=== PATIENT | female | born 1960 | race American Indian/Alaskan Native ===

== ENCOUNTER 2020-05-16 15:20 | Outpatient (REF) | payer OTHER, SELFPAY ==
--- NOTE | 2020-05-16 15:26 | MM_ITS ---
EXAMINATION: MM SCREENING DIGITAL BREAST TOMOSYNTHESIS, BILATERAL CLINICAL INFORMATION: Screening. Asymptomatic. No family history breast cancer. Age 59. The lifetime risk of breast cancer based on the Tyrer-Cuzick Model is 9%. COMPARISON: None. TECHNIQUE: Digital breast tomosynthesis is performed in both the craniocaudal and mediolateral oblique views along with computer-aided detection (CAD). Synthesized 2D images are generated from the tomosynthesis. FINDINGS: The breasts are almost entirely fatty (ACR BI-RADS breast composition Category a). Background stromal markings appear normal. There is no mass or architectural abnormality. No abnormal calcifications. The axilla and skin contours are unremarkable. MM/MM tomosynthesis screening BI IMPRESSION: No mammographic evidence of malignancy. ASSESSMENT: BI-RADS 1: Negative RECOMMENDATION: Routine annual mammography screening. This patient's information was entered into a reminder system with a target due date for their next mammogram.
== END 2020-05-16 15:21 | disposition home or self-care (01) ==
LOC: HO.MAMMO 15:20
PROVIDERS: PCP Family Medicine; Visit Provider Family Medicine
DX: Z12.31 Encounter for screening mammogram for malignant neoplasm of breast (principal)
CPT/HCPCS: 77063; 77067

== ENCOUNTER 2020-05-30 08:20 | Outpatient (REF) | payer OTHER, SELFPAY ==
[2020-05-30 09:32] LABS: COVID-19 Test Negative (Negative)
== END 2020-05-30 08:21 | disposition home or self-care (01) ==
LOC: HO.EMPCOV 08:20
PROVIDERS: Visit Provider Internal Medicine
DX: Z20.828 Contact with and (suspected) exposure to other viral communicable diseases (principal)
CPT/HCPCS: 87635; C9803

== ENCOUNTER 2020-07-10 07:17 | Outpatient (REF) | payer OTHER, SELFPAY ==
[2020-07-10 07:35] LABS: COVID-19 Test Negative (Negative)
== END 2020-07-10 07:18 | disposition home or self-care (01) ==
LOC: HO.EMPCOV 07:17
PROVIDERS: Visit Provider Internal Medicine
DX: Z20.828 Contact with and (suspected) exposure to other viral communicable diseases (principal)
CPT/HCPCS: 36415; 87635; C9803

== ENCOUNTER 2020-07-13 07:24 | Day surgery (SDC) | payer OTHER, SELFPAY ==
--- NOTE | 2020-07-11 13:51 | HO.ANESPROP2 ---
HPI - Anesthesia Eval Consult details Narrative: 59yo F for Colonoscopy PMFSH Past Medical History Medical History Anxiety Asthma Diabetes mellitus Elevated cholesterol Surgical History Surgical History H/O wisdom tooth extraction Hx of colonoscopy Hx of tonsillectomy Social History Social History Smoking Status: Never smoker Advance Directives: Yes Advance Directives Information Provided: Yes Advance Directives on File: No Advance Directives Date on File: 07/13/20 Recently lost weight without trying: No Meds Allergies Allergy/AdvReac Type Severity Reaction Status Date / Time theophylline [THEOPHYLLINE] Allergy Mild HIVES Verified 07/13/20 08:06 codeine [CODEINE] AdvReac Mild HIVES Verified 07/13/20 08:06 Chocolate AdvReac Shortness Verified 07/13/20 07:50 of Breath nut - unspecified AdvReac Shortness Verified 07/13/20 07:49 of Breath Home Medications Medication Instructions Recorded Confirmed Type alprazolam 1 tab PO DAILY PRN 07/05/20 07/13/20 History cyclobenzaprine 1 tab PO TID 07/05/20 07/05/20 History rosuvastatin 1 tab PO DAILY 07/05/20 07/05/20 History Exam Exam Date and Time: July 11, 2020 1351 Pertinent Lab Results Pertinent Lab Results: Laboratory Tests 12/27/19 12/27/19 06:40 06:40 WBC 7.9 Hgb 15.0 Hct 47.1 H Plt Count 285 Sodium 141 Potassium 4.4 Chloride 105 BUN 14 Creatinine 0.82 Assessment and Plan Assessment Anesthesia Assessment: Chart Reviewed
[2020-07-13 07:37] VITALS: BMI 37.9
[2020-07-13 07:52] VITALS: BP 171/88; PULSE 89; RESP 16; TEMP 36.3; O2SAT 98
[2020-07-13 07:58] LABS: Glucose, Whole Blood 160 mg/dL (60-115)
[2020-07-13] MEDS: Lactated Ringers 1,000 ML 100 ML IVCONT (08:07)
--- NOTE | 2020-07-13 08:16 | P.CONAN_ITS ---
FORMERLY [facility], 1928–1983 Past Medical History Medical History Anxiety Asthma Diabetes mellitus Elevated cholesterol Surgical History Surgical History H/O wisdom tooth extraction Hx of colonoscopy Hx of tonsillectomy Social History Social History Smoking Status: Never smoker Advance Directives: Yes Advance Directives Information Provided: Yes Advance Directives on File: No Advance Directives Date on File: 07/13/20 Recently lost weight without trying: No Meds Allergies Allergy/AdvReac Type Severity Reaction Status Date / Time theophylline [THEOPHYLLINE] Allergy Mild HIVES Verified 07/13/20 08:06 codeine [CODEINE] AdvReac Mild HIVES Verified 07/13/20 08:06 Chocolate AdvReac Shortness Verified 07/13/20 07:50 of Breath nut - unspecified AdvReac Shortness Verified 07/13/20 07:49 of Breath Home Medications Medication Instructions Recorded Confirmed Type alprazolam 1 tab PO DAILY PRN 07/05/20 07/13/20 History cyclobenzaprine 1 tab PO TID 07/05/20 07/05/20 History rosuvastatin 1 tab PO DAILY 07/05/20 07/05/20 History Exam Exam Date and Time: July 13, 2020 0816 Height,Weight and Vital Signs: Height 5 ft 6 in Weight 106.594 kg Last Vital Signs Temp 97.4 F 07/13/20 07:52 Pulse 89 07/13/20 07:52 Resp 16 07/13/20 07:52 BP 171/88 H 07/13/20 07:52 Pulse Ox 98 07/13/20 07:52 Pertinent Lab Results Pertinent Lab Results: Laboratory Tests 07/13/20 07:54 POC Glucose 160 H Airway Mallampati Class: II TM Dist: >3cm Neck ROM: Full Loose/Missing/Broken Teeth: No Heart: [id number] Lungs: cta b/l Assessment and Plan Assessment Anesthesia Assessment: Anesthesia Plan Discussed and Chart Reviewed Final Anesthetic Review NPO: Yes ASA Class: II Final Preanesthetic Review: No Changes in Pt Med Stat, Meds/Allgs Chart Reviewed and Consent Obtained/Reviewed Patient Risk: Low Procedure Risk: Low Assessment/Block/Sedation in SS: Assess/Block/Sedation-SS Anesthetic Plan Anesthetic Plan: MAC: Disposition: Standard PACU
--- NOTE | 2020-07-13 08:44 | MHC.SHP ---
Pre-Procedural Eval Section B Chief Complaint: Screening Relevant Family History (Specify if Yes): No Relevant Social History: None Present Medications: see Short Stay Collaborative assessment Medical History: Significant History (Anxiety Asthma Diabetes mellitus Elevated cholesterol) History of Previous Operations: Relevant previous surgery/procedure and date(s) (tonsilectomy) Allergies: Allergies Allergy/AdvReac Type Severity Reaction Status Date / Time theophylline [THEOPHYLLINE] Allergy Mild HIVES Verified 07/13/20 08:06 codeine [CODEINE] AdvReac Mild HIVES Verified 07/13/20 08:06 Chocolate AdvReac Shortness Verified 07/13/20 07:50 of Breath nut - unspecified AdvReac Shortness Verified 07/13/20 07:49 of Breath Review of Systems Sugical H&P ROS: Negative: Constitution, Cardiovascular, Respiratory, Neurological, Psychiatric, Hem-Onc, Allergic/Immunologic, Gastrointestinal, Genitourinary, Musculoskeletal, Integumentary, Endocrine and Eyes/Ears/Nose/Throat Exam Surgical H&P Exam: Normal: HEENT, Normal: Heart, Normal: Lungs, Normal: Extremities, Normal: Abdomen, Normal: Skin and Normal: Neurological Plan Diagnosis/Plan: Unchanged I have reviewed the history and physical and performed a pertinent physical examination on my patient. No changes have occurred unless specified.
--- NOTE | 2020-07-13 08:44 | PM.OP ---
Brief Operative Note Date of Service: 07/13/20 Post-op diagnosis: same Procedure: Operative Information Procedure Description: Colonoscopy COLONOSCOPY Instrument: Olympus variable stiffness pediatric scope 190L Colonoscopy Monitoring: Vital signs and clinical assessment, continuous EKG monitoring, Pulse oximetry, Carbon Dioxide monitoring and blood pressure monitoring were done throughout the procedure. Colon withdrawal time was 12 minutes. Procedure: The patient was placed in the left lateral decubitis position and pre-procedure medications were administered. After a digital rectal examination of the ano-rectum, the video colonoscope was inserted into the rectum and advanced through the colon to the cecum/TI. The colonoscope was slowly withdrawn in a retrograde panoramic fashion and the colon mucosa was carefully examined including a retroflexed view of the rectum. Findings and interventions are described below. Procedure Difficulty:easy Findings: Terminal Ileum-normal Cecum:normal Ascending Colon: normal Transverse Colon -normal Descending Colon:normal Sigmoid Colon: Large mouthed diverticulosis, moderate severity with mucosal hypertrophy. 8-9 mm sessile polyp removed with forceps Rectum: Retroflexion with medium sized internal hemorrhoids, grade II, mildly inflammed, x 2 sessile polyps removed with forceps 5-7 mm in size Anorectum - internal hemorrhoids seen at anal verge Colon preparation: Phoenix Bowel Preparation Scale Right colon; 3 Transverse colon: 3 Left colon; 3 (0 = Unprepared colon segment with mucosa not seen due to solid stool that cannot be cleared. 1 = Portion of mucosa of the colon segment seen, but other areas of the colon segment not well seen due to staining, residual stool and/or opaque liquid. 2 = Minor amount of residual staining, small fragments of stool and/or opaque liquid, but mucosa of colon segment seen well. 3 = Entire mucosa of colon segment seen well with no residual staining, small fragments of stool or opaque liquid) Impression and Post Procedure Diagnosis: polyps internal hemorrhoids diverticular disease Plan: High fiber diet leaflet Avoid straining at stool, epsom salts and sitz bath, anusol supps or cream Repeat Colonoscopy in 5 years if adenomatous polyps, 7-10 years if hyperplastic or earlier if clinically indicated Above findings were reviewed with the patient and relevant handouts were provided if indicated. Surgeon: Jones Gamez MD Anesthesia: MAC Estimated blood loss (mL): 0 Condition: stable Disposition: PACU
[2020-07-13 09:15] VITALS: BP 111/62; PULSE 69; RESP 18; TEMP 36.2; O2SAT 99
--- NOTE | 2020-07-13 09:27 | PC.NURSE ---
924 WAKING ANSWERS QUESTION PASSED AIR O2 DCD TRIAL RA, FALLS EASILY BACK TO SLEEP RESP REG O2 SATS 97 RA
[2020-07-13 09:30] VITALS: BP 124/75; PULSE 71; RESP 18; O2SAT 98
[2020-07-13 09:45] VITALS: BP 134/77; PULSE 57; RESP 18; O2SAT 98
--- NOTE | 2020-07-13 10:06 | HO.POSTANES ---
Post Anesthesia Evaluation Post Anesthesia Evaluation Vital Signs: Vital Signs Temp Pulse Resp BP Pulse Ox 07/13/20 09:45 97.1 F 57 18 134/77 98 07/13/20 09:30 71 18 124/75 98 07/13/20 09:15 97.1 F 69 18 111/62 99 07/13/20 07:52 97.4 F 89 16 171/88 H 98 Anesthesia: Monitored Mental Status: Awake Pain Control: Satisfactory Nausea/Vomiting: None Hydration: Adequate Anesthesia-Related Issues: No Anes. Related Issues
== END 2020-07-13 10:14 | disposition home or self-care (01) ==
PROVIDERS: Visit Provider Internal Medicine Gastroenterology
PROC: 0DJD8ZZ Inspection of Lower Intestinal Tract, Via Natural or Artificial Opening Endoscopic (ICD-10-PCS; CPT 45378; principal; 2020-07-13 08:30)
DX: Z12.11 Encounter for screening for malignant neoplasm of colon (principal); K63.5 Polyp of colon; K62.1 Rectal polyp; K57.30 Diverticulosis of large intestine without perforation or abscess without bleeding; K64.1 Second degree hemorrhoids; E11.9 Type 2 diabetes mellitus without complications; J45.909 Unspecified asthma, uncomplicated; F41.9 Anxiety disorder, unspecified; Z88.8 Allergy status to other drugs, medicaments and biological substances; Z79.899 Other long term (current) drug therapy
CPT/HCPCS: 45380; 82947; 88305

== ENCOUNTER → 2020-07-17 13:17 | Outpatient (BNVA) | payer OTHER, SELFPAY | PROVIDERS: Visit Provider Internal Medicine Gastroenterology | DX: Z76.89 Persons encountering health services in other specified circumstances (principal) ==

== ENCOUNTER 2020-08-24 07:36 | Outpatient (REF) | payer OTHER, SELFPAY ==
[2020-08-24 07:55] LABS: COVID-19 Test Negative (Negative); IDNOW Serial# 55D5AD1C
== END 2020-08-24 07:37 | disposition home or self-care (01) ==
LOC: HO.EMPCOV 07:36
PROVIDERS: Visit Provider Internal Medicine
DX: Z20.822 Contact with and (suspected) exposure to COVID-19 (principal)
CPT/HCPCS: 36415; 87635; C9803

== ENCOUNTER 2021-07-13 08:30 | Outpatient (REF) | payer OTHER, SELFPAY ==
--- NOTE | ~2021-07-13 | MM_ITS ---
EXAMINATION: MM SCREENING DIGITAL BREAST TOMOSYNTHESIS, BILATERAL CLINICAL INFORMATION: Screening. Asymptomatic. The lifetime risk of breast cancer based on the Tyrer-Cuzick Model is 9%. COMPARISON: Mammography: 05/16/2020, outside mammography 01/22/2019, 06/26/2017 ([place], [place]). TECHNIQUE: Digital breast tomosynthesis is performed in both the craniocaudal and mediolateral oblique views along with computer-aided detection (CAD). Synthesized 2D images are generated from the tomosynthesis. FINDINGS: The breasts are almost entirely fatty (ACR BI-RADS breast composition Category a). There are no significant masses, abnormal calcifications, or other abnormalities. Background stromal markings are similar to her studies. No significant changes. MM/MM tomosynthesis screening BI IMPRESSION: No mammographic evidence of malignancy. ASSESSMENT: BI-RADS 1: Negative RECOMMENDATION: Routine annual mammography screening. This patient's information was entered into a reminder system with a target due date for their next mammogram.
== END 2021-07-13 08:31 | disposition home or self-care (01) ==
LOC: HO.MAMMO 08:30
PROVIDERS: Visit Provider Family Medicine
DX: Z12.31 Encounter for screening mammogram for malignant neoplasm of breast (principal)
CPT/HCPCS: 77063; 77067

== ENCOUNTER 2021-08-07 10:46 | Outpatient (REF) | payer OTHER, SELFPAY ==
[2021-08-07 12:07] LABS: Hematocrit 46.3 % (37.0-47.0); Mean Corpuscular HGB Conc 32.4 g/dl (31.0-35.0); Mean Corpuscular Hemoglobin 28.4 pg (27.0-33.0); Mean Corpuscular Volume 87.7 fL (80.0-98.0); Mean Platelet Volume 11.2 fL (9.4-12.3); Platelet Count 291 X10*3/uL (160-400); Red Blood Count 5.28 X10*6/uL (4.20-5.50); Red Cell Distribution Width 12.6 % (11.0-16.0); White Blood Count 7.8 X10*3/uL (4.8-10.8)
[2021-08-07 12:16] LABS: Estimated Average Glucose 217 mg/dL; Hemoglobin A1c % 9.2 %
[2021-08-07 12:27] LABS: Creatinine Urine 97.52 mg/dL; Microalbum/Creatinine Ratio Ur 19.4 ug/mg cr
[2021-08-07 12:32] LABS: Alanine Aminotransferase 44 U/L (0-31); Albumin Level 4.2 g/dL (3.5-5.0); Alkaline Phosphatase 115 U/L (39-117); Anion Gap 12 (12-20); Aspartate Amino Transferase 23 U/L (5-31); Bilirubin Total 0.6 mg/dL (0.0-1.0); Blood Urea Nitrogen 17 mg/dL (9-16); Calcium 9.7 mg/dL (8.4-10.2); Carbon Dioxide 26 mmol/L (22-29); Chloride 106 mmol/L (96-108); Cholesterol 219 mg/dL; Estimated Glomerular Filt Rate > 60; Glucose Random 180 mg/dL (60-115); HDL Cholesterol 44 mg/dL; LDL Cholesterol Calculated 148 mg/dl; Potassium 4.3 mmol/L (3.3-5.1); Sodium 140 mmol/L (135-145); Total Protein 7.4 g/dL (6.5-8.0); Triglycerides 136 mg/dL
[2021-08-07 12:54] LABS: TSH reflex Free T4 0.98 uIU/mL (0.32-4.0)
== END 2021-08-07 10:47 | disposition home or self-care (01) ==
LOC: HO.LAB 10:46
PROVIDERS: PCP Family Medicine; Visit Provider Family Medicine
DX: Z00.00 Encounter for general adult medical examination without abnormal findings (principal); E11.65 Type 2 diabetes mellitus with hyperglycemia; E78.5 Hyperlipidemia, unspecified
CPT/HCPCS: 36415; 80053; 80061; 82043; 83036; 84443; 85027

== ENCOUNTER 2022-02-18 07:27 | Outpatient (REF) | payer OTHER, SELFPAY ==
[2022-02-18 08:09] LABS: Estimated Average Glucose 223 mg/dL; Hemoglobin A1c % 9.4 %
[2022-02-18 08:33] LABS: Alanine Aminotransferase 57 U/L (0-31); Albumin Level 4.1 g/dL (3.5-5.0); Alkaline Phosphatase 114 U/L (39-117); Anion Gap 15 (12-20); Aspartate Amino Transferase 26 U/L (5-31); Bilirubin Total 0.6 mg/dL (0.0-1.0); Blood Urea Nitrogen 14 mg/dL (9-16); Calcium 9.2 mg/dL (8.4-10.2); Carbon Dioxide 24 mmol/L (22-29); Chloride 104 mmol/L (96-108); Cholesterol 212 mg/dL; Estimated Glomerular Filt Rate > 60; Glucose Random 243 mg/dL (60-115); HDL Cholesterol 45 mg/dL; LDL Cholesterol Calculated 145 mg/dl; Potassium 4.3 mmol/L (3.3-5.1); Sodium 139 mmol/L (135-145); Total Protein 7.2 g/dL (6.5-8.0); Triglycerides 111 mg/dL
[2022-02-18 09:07] LABS: Reflex LDLD? No
== END 2022-02-18 07:28 | disposition home or self-care (01) ==
LOC: HO.LAB 07:27
PROVIDERS: PCP Family Medicine; Visit Provider Family Medicine
DX: E11.9 Type 2 diabetes mellitus without complications (principal)
CPT/HCPCS: 36415; 80053; 80061; 83036